=== PATIENT | female | born 1950 | race Caucasian/White ===

== ENCOUNTER 2016-12-16 05:14 | Inpatient (IN) | payer MEDICARE ==
[~2016-12-16 05:14] MED LIST: ASA CHILDREN'S81 MG PO; ATIVAN-DPS0.5 MG PO; AUGMENTIN875 MG PO; DULCOLAX-DPS10 MG PR; DURAGESIC1 EAC1 TD; HYDROCODON-ACE1 EAC6 PO; MOTRIN-DPS400 MG PO; PAXIL DPS20 MG PO; PROVENTIL HFA6.7 GM IH; SENOKOT DPS8.6 MG PO; TUMS DPS500 MG PO; TYLENOL EXTRA500 M1 PO; VITAMIN D1000 UNIT PO; ZYRTEC DPS10 MG PO
[2016-12-23] MEDS ORDERED: LOPRESSOR DPS50 MG PO (06:21)
[2016-12-23] MEDS ORDERED: REGLAN-DPS10 MG PO (06:22)
[2016-12-23] MEDS ORDERED: NEURONTIN DPS100 MG PO (06:22)
[2016-12-23] MEDS ORDERED: DUONEB DPS3 ML IH (06:23)
[2016-12-23] MEDS ORDERED: POLYTRIM EYE DR10 ML OU (06:24)
[2016-12-23] MEDS ORDERED: MUCOMYST 10% IH (06:24)
[2016-12-23] MEDS ORDERED: [UNRECOGNIZED DRUG - OTHER] TP (06:25)
[2016-12-23] MEDS ORDERED: ATIVAN-DPS0.5 MG PO (06:26)
[2016-12-23] MEDS ORDERED: BENADRYL-DPS25 MG PO (06:27)
[2016-12-23] MEDS ORDERED: BIOFREEZE89 ML TP (06:28)
[2016-12-23] MEDS ORDERED: HYDROCODON-ACE1 EAC6 PO (06:29)
[2016-12-23] MEDS ORDERED: MILK OF MAGNESI10 ML PO (06:30)
[2016-12-23] MEDS ORDERED: MAG-AL LIQUID30 ML PO (06:30)
[2016-12-23] MEDS ORDERED: ZOFRAN ODT4 MG PO (06:32)
[2016-12-23] MEDS ORDERED: DELTASONE DPS1 MG PO (06:34)
== END 2016-12-21 15:02 | DRG 190 ==
DX: J44.0 Chronic obstructive pulmonary disease with (acute) lower respiratory infection (principal); J18.9 Pneumonia, unspecified organism; J96.21 Acute and chronic respiratory failure with hypoxia; G93.41 Metabolic encephalopathy; J96.22 Acute and chronic respiratory failure with hypercapnia; G95.29 Other cord compression; G81.90 Hemiplegia, unspecified affecting unspecified side; D33.4 Benign neoplasm of spinal cord; J98.6 Disorders of diaphragm; E87.6 Hypokalemia; I10 Essential (primary) hypertension; Z99.81 Dependence on supplemental oxygen; E66.9 Obesity, unspecified; Z68.39 Body mass index [BMI] 39.0-39.9, adult; F41.9 Anxiety disorder, unspecified; M51.37 Other intervertebral disc degeneration, lumbosacral region; F32.9 Major depressive disorder, single episode, unspecified; I51.7 Cardiomegaly; M81.0 Age-related osteoporosis without current pathological fracture; Z79.82 Long term (current) use of aspirin; Z99.3 Dependence on wheelchair; Z66 Do not resuscitate

== ENCOUNTER → 2016-12-25 | Outpatient (CLI) | payer OTHER, MEDICARE ==
[~2016-12-25] MED LIST changes: +BENADRYL-DPS25 MG PO; +BIOFREEZE89 ML TP; +DELTASONE DPS1 MG PO; +DUONEB DPS3 ML IH; +LOPRESSOR DPS50 MG PO; +MAG-AL LIQUID30 ML PO; +MILK OF MAGNESI10 ML PO; +MUCOMYST 10% IH; +NEURONTIN DPS100 MG PO; +POLYTRIM EYE DR10 ML OU; +REGLAN-DPS10 MG PO; +ZOFRAN ODT4 MG PO; +[UNRECOGNIZED DRUG - OTHER] TP
== END | disposition home or self-care (01) ==
LOC: RAD.S 11:36
DX: J18.9 Pneumonia, unspecified organism (principal)